=== PATIENT | female | born 1965 | race African-American/Black ===

== ENCOUNTER 2022-10-18 21:29 | Emergency (ER) | payer OTHER ==
[~2022-10-18] VITALS: Ht 167.6 cm; Wt 82.0 kg
[~2022-10-18 21:29] MED LIST: LISI10TA26 PO
[2022-10-18 21:34] VITALS: O2SAT 100
[2022-10-18] MEDS ORDERED: LORAZEPAM 2MG/ML CPJ IV ONE (22:30)
[2022-10-18 22:59] LABS: CLARITY URINE CLEAR (CLEAR); COLOR URINE YELLOW (YELLOW); KETONES URINE NEGATIVE (NEGATIVE); LEUKOCYTE ESTERASE URINE NEGATIVE (NEGATIVE); NITRITE URINE NEGATIVE (NEGATIVE); OCCULT BLOOD URINE NEGATIVE (NEGATIVE); PH URINE 6.5 (4.5-8.0); PROTEIN URINE NEGATIVE (NEGATIVE); SPECIFIC GRAVITY URINE 1.028 (1.005-1.030); UROBILINOGEN URINE 0.2 E.U./dL (0.2-1.0)
[2022-10-18] MEDS ORDERED: LORAZEPAM 2MG/ML CPJ IV NR (23:00)
[2022-10-18 23:12] LABS: *AMPHETAMINES SCREEN URINE NEGATIVE (NEGATIVE); *BARBITURATES SCREEN URINE NEGATIVE (NEGATIVE); *BENZODIAZEPINES SCREEN URINE NEGATIVE (NEGATIVE); *COCAINE SCREEN URINE NEGATIVE (NEGATIVE); CANNABINOID URINE SCREEN NEGATIVE (NEGATIVE); METHADONE URINE SCREEN NEGATIVE (NEGATIVE); OPIATES URINE SCREEN NEGATIVE (NEGATIVE); PHENCYCLIDINE URINE SCREEN NEGATIVE (NEGATIVE)
[2022-10-18 23:13] LABS: BASOPHILS % 0.7 % (0.0-2.0); EOSINOPHILS % 0.8 % (0.0-5.0); HEMATOCRIT. 37.4 % (36.0-48.0); HEMOGLOBIN. 12.4 g/dL (12.0-16.0); LYMPHOCYTES % 24.2 % (20.0-50.0); MEAN CORPUSCULAR HEMOGLOBIN 26.2 pg (28.0-32.0); MEAN CORPUSCULAR VOLUME 78.9 fL (81.0-99.0); MEAN PLATELET VOLUME 8.5 fl (7.4-10.4); MONOCYTES % 8.2 % (2.0-8.0); NEUTROPHILS % 66.1 % (40.0-76.0); PLATELET 286 x1000/uL (130-400); RED BLOOD CELL COUNT 4.74 mill/uL (4.2-5.4); RED CELL DISTRIBUTION WIDTH 14.3 % (11.6-14.6)
[2022-10-18 23:21] LABS: CHLORIDE 109 mEq/L (98-107)
[2022-10-18 23:34] LABS: PROTHROMBIN TIME 11.1 sec (9.6-11.0)
[2022-10-19 04:13] VITALS: BP 151/95; PULSE 71; RESP 14; TEMP 97.9
== END 2022-10-19 04:44 | disposition short-term general hospital (02) ==
LOC: ER 21:29 → CANBEDREQ 10-19 06:28
DX: G45.9 Transient cerebral ischemic attack, unspecified (principal); G43.909 Migraine, unspecified, not intractable, without status migrainosus; R47.81 Slurred speech; I10 Essential (primary) hypertension
CPT/HCPCS: 80053; 80305; 81003; 82962; 83605; 85025; 85610; 84484; 36415; 71045; 70496; 70498; 70450; 93005; 96374; 99291; J2060; Z7610 ×2

== ENCOUNTER 2022-10-21 16:50 | Emergency (ER) | payer OTHER ==
[~2022-10-21] VITALS: Ht 167.6 cm; Wt 103.6 kg
[2022-10-21 16:54] VITALS: O2SAT 99
[2022-10-21 18:21] LABS: CLARITY URINE CLEAR (CLEAR); COLOR URINE YELLOW (YELLOW); KETONES URINE NEGATIVE (NEGATIVE); LEUKOCYTE ESTERASE URINE NEGATIVE (NEGATIVE); NITRITE URINE NEGATIVE (NEGATIVE); OCCULT BLOOD URINE NEGATIVE (NEGATIVE); PH URINE 6.5 (4.5-8.0); PROTEIN URINE NEGATIVE (NEGATIVE); SPECIFIC GRAVITY URINE 1.031 (1.005-1.030); UROBILINOGEN URINE 0.2 E.U./dL (0.2-1.0)
[2022-10-21 18:31] LABS: *AMPHETAMINES SCREEN URINE NEGATIVE (NEGATIVE); *BARBITURATES SCREEN URINE NEGATIVE (NEGATIVE); *BENZODIAZEPINES SCREEN URINE NEGATIVE (NEGATIVE); *COCAINE SCREEN URINE NEGATIVE (NEGATIVE); CANNABINOID URINE SCREEN NEGATIVE (NEGATIVE); METHADONE URINE SCREEN NEGATIVE (NEGATIVE); OPIATES URINE SCREEN NEGATIVE (NEGATIVE); PHENCYCLIDINE URINE SCREEN NEGATIVE (NEGATIVE)
[2022-10-21 18:33] VITALS: TEMP 98.5
[2022-10-21 18:37] LABS: BASOPHILS % 0.5 % (0.0-2.0); EOSINOPHILS % 1.5 % (0.0-5.0); HEMATOCRIT. 33.8 % (36.0-48.0); HEMOGLOBIN. 11.5 g/dL (12.0-16.0); LYMPHOCYTES % 29.3 % (20.0-50.0); MEAN CORPUSCULAR HEMOGLOBIN 26.7 pg (28.0-32.0); MEAN CORPUSCULAR VOLUME 78.7 fL (81.0-99.0); MEAN PLATELET VOLUME 8.6 fl (7.4-10.4); MONOCYTES % 8.4 % (2.0-8.0); NEUTROPHILS % 60.3 % (40.0-76.0); PLATELET 277 x1000/uL (130-400); RED CELL DISTRIBUTION WIDTH 14.1 % (11.6-14.6)
[2022-10-21 18:45] LABS: CHLORIDE 106 mEq/L (98-107)
[2022-10-21 18:46] LABS: INR 1.1; PROTHROMBIN TIME 11.4 sec (9.6-11.0)
[2022-10-21 18:56] LABS: ETHANOL BLOOD < 10 mg/dL (-10)
[2022-10-21 18:58] LABS: HCG SCREEN NEGATIVE
[2022-10-21] MEDS ORDERED: IOHEXOL-350 100 ML BOTTLE ONE (20:45)
[2022-10-21] MEDS ORDERED: LABETALOL 5MG/ML SYR 20 MG/4 ML SYRINGE IV ONE (22:30)
[2022-10-21 23:14] VITALS: BP 172/99; PULSE 68; RESP 15
== END 2022-10-21 23:49 | disposition short-term general hospital (02) ==
LOC: ER 16:50 → CANBEDREQ 10-22 00:15
DX: I63.9 Cerebral infarction, unspecified (principal); R53.1 Weakness; I10 Essential (primary) hypertension; Z88.0 Allergy status to penicillin
CPT/HCPCS: 80053; 80305; 81003; 80320; 82962; 84703; 83880; 84443; 85025; 85610; 84484; 36415; 71045; 70496; 70498; 70450; 93005; 96374; 99291; Q9967; J3490; G0480